=== PATIENT | male | born 1990 | race Caucasian/White ===

== ENCOUNTER 2024-08-20 07:55 | Emergency (ER) | payer BC ==
[~2024-08-20] VITALS: Ht 175.3 cm; Wt 69.9 kg
[2024-08-20] MEDS ORDERED: HALOPERIDOL LACTATE INJ 5 MG/ML VIAL ONE (08:17)
[2024-08-20] MEDS: IV NS 0.9% 1,000 ML BAG IV ONE ×2 (08:20→11:30)
[2024-08-20] MEDS: HALOPERIDOL LACTATE INJ 5 MG/ML VIAL IV ONE (08:29)
[2024-08-20 08:48] LABS: BASOPHILS % (AUTO) 0.3 % (0.0-2.0); EOSINOPHILS # (AUTO) 0.2 K/uL (0.0-0.7); EOSINOPHILS % (AUTO) 1.2 % (0.0-6.0); HEMATOCRIT 46 % (39-51); LYMPHOCYTES % (AUTO) 17.9 % (20.0-44.0); MEAN CORPUSCULAR HEMOGLOBIN 29 PG (26.0-33.0); MEAN CORPUSCULAR HGB CONC 33 g/dl (31.0-36.0); MEAN CORPUSCULAR VOLUME 88 fL (80-96); MONOCYTES # (AUTO) 0.6 K/uL (0.1-1.30); MONOCYTES % (AUTO) 3.6 % (2.0-12.0); NEUTROPHILS # (AUTO) 12.7 K/uL (1.8-8.9); PLATELET COUNT (AUTO) 350 K/uL (150-450); RED BLOOD CELL COUNT(AUTO) 5.18 MIL/uL (4.5-6.0); RED CELL DISTRIBUTION WIDTH 13.5 % (11.5-15.0); WHITE BLOOD COUNT (AUTO) 16.5 K/uL (4.3-11.0)
[2024-08-20 09:38] LABS: ALBUMIN 4.6 g/dL (3.4-5.0); BILIRUBIN,DIRECT 0.2 mg/dL (0.0-0.2); BILIRUBIN,TOTAL 0.7 mg/dL (0.2-1.0); CALCIUM, SERUM 9.9 mg/dL (8.5-10.1); CREATININE 1.3 mg/dL (0.6-1.3); POTASSIUM 3.5 mmol/L (3.5-5.1); TOTAL PROTEIN, SERUM 8.5 g/dL (6.4-8.2)
[2024-08-20] MEDS ORDERED: MORPHINE SULFATE INJ 4 MG/ML DISP.SYRIN ONE (09:57)
[2024-08-20] MEDS ORDERED: FAMOTIDINE/PF INJ 20 MG/2 ML VIAL IV ONE (09:58)
[2024-08-20] MEDS: FAMOTIDINE/PF INJ 20 MG/2 ML VIAL IV ONE (10:00)
[2024-08-20] MEDS: MORPHINE SULFATE INJ 10 MG/ML DISP.SYRIN IV ONE (10:00)
[2024-08-20] MEDS: HYDROMORPHONE INJ 2 MG/ML DISP.SYRIN IV ONE (11:30)
[2024-08-20] MEDS ORDERED: HYDROMORPHONE 1 MG/1 ML DISP.SYRIN ONE (11:36)
[2024-08-20] MEDS ORDERED: DICY10CA37 PO (12:32)
[2024-08-20] MEDS ORDERED: METO5TAB87 PO (12:32)
[2024-08-20 13:25] VITALS: BP 124/80; TEMP 98.6; O2SAT 98
== END 2024-08-20 13:26 | disposition home or self-care (01) ==
LOC: ER 07:57
DX: R11.15 Cyclical vomiting syndrome unrelated to migraine (principal); R07.89 Other chest pain; R10.84 Generalized abdominal pain; R11.2 Nausea with vomiting, unspecified
CPT/HCPCS: 99285; 71250; 96374; 96375; 96361; 93005; 74176; 85025; 80048; 83690; 80076; 36415; 84484 ×2; J1630; J2270 ×2; J3490; J7030 ×2; A4223; J1171